=== PATIENT | female | born 1990 | race Two or more races ===

== ENCOUNTER 2021-11-21 14:37 | Emergency (ER) | payer MEDICAID, OTHER ==
[~2021-11-21] VITALS: Ht 170.2 cm; Wt 111.8 kg
[2021-11-21] MEDS ORDERED: ACETAMINOPHEN 325 MG TAB PO ONE (16:30)
[2021-11-21] MEDS ORDERED: TETANUS-DIPTH-ACEL PERTUSSIS 0.5ML SYR Tdap IM ONE (17:30)
[2021-11-21] MEDS ORDERED: TRAM-297 PO (17:59)
[2021-11-21 19:35] VITALS: BP 111/60
== END 2021-11-21 19:35 | disposition home or self-care (01) ==
LOC: ER 14:37
DX: S20.219A Contusion of unspecified front wall of thorax, initial encounter (principal); S80.212A Abrasion, left knee, initial encounter; S50.812A Abrasion of left forearm, initial encounter; V43.52XA Car driver injured in collision with other type car in traffic accident, initial encounter; Y93.89 Activity, other specified; Y92.410 Unspecified street and highway as the place of occurrence of the external cause; Y99.8 Other external cause status
CPT/HCPCS: 71046